=== PATIENT | female | born 1985 ===

== ENCOUNTER 2017-02-28 12:55 | Emergency (ER) | payer OTHER ==
[2017-02-28 13:02] VITALS: BP 141/82; PULSE 65; RESP 18; TEMP 97.9; O2SAT 99
[2017-02-28] MEDS: Oxycodone/Acetaminophen 5/325 mg Tab PO STA (13:12)
[2017-02-28] MEDS ORDERED: Silver Sulfadiazine 1% CREAM (50 gm) ONE (13:12)
[2017-02-28] MEDS: Silver Sulfadiazine 1% CREAM (50 gm) TOP STA (13:13)
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
== END 2017-02-28 14:38 | disposition home or self-care (01) ==
LOC: H.ER 12:55
DX: T23.001A Burn of unspecified degree of right hand, unspecified site, initial encounter (principal); X10.2XXA Contact with fats and cooking oils, initial encounter; Y92.89 Other specified places as the place of occurrence of the external cause
CPT/HCPCS: 96372; 99281; J1885